=== PATIENT | male | born 1995 | race Caucasian/White ===

== ENCOUNTER → 2018-11-15 | Outpatient (REF) | payer BC | LOC: M LAB REF 10:40 | PROVIDERS: ATTEND Physician Assistant | DX: L98.9 Disorder of the skin and subcutaneous tissue, unspecified (principal) ==

== ENCOUNTER 2018-12-07 21:37 | Emergency (ER) | payer BC ==
[~2018-12-07] VITALS: Ht 172.7 cm; Wt 81.8 kg
[2018-12-07] MEDS ORDERED: SMZ/TMP (21:49)
[2018-12-07] MEDS ORDERED: PRED20TA (21:49)
[2018-12-07] MEDS ORDERED: CEPH500C (21:49)
[2018-12-08] MEDS ORDERED: ITRACONAZOLE 100 MG CAP (SPORANOX) PO STA (00:34)
[2018-12-08] MEDS ORDERED: SPOR1CAP PO (00:41)
[2018-12-08 00:52] VITALS: BP 124/70
== END 2018-12-08 01:00 | disposition home or self-care (01) ==
LOC: M ED 21:37
DX: B35.4 Tinea corporis (principal); B35.6 Tinea cruris; Z79.2 Long term (current) use of antibiotics; Z79.52 Long term (current) use of systemic steroids